=== PATIENT | female | born 1945 | race Caucasian/White ===

== ENCOUNTER 2023-03-15 11:39 | Emergency (ER) | payer MEDICARE, BC, SELFPAY ==
[2023-03-15] VITALS (13 sets, daily range): BP systolic 134–184; BP diastolic 70–90; PULSE 72–97; RESP 14; TEMP 36.9; O2SAT 94–99; BMI 29.2
[2023-03-15 12:28] LABS: Ictotest Urine Negative (Negative)
[2023-03-15] MEDS: ONDANSETRON 4 MG/2 ML INJ IV (12:30)
[2023-03-15 12:36] LABS: Add Manual Diff / Slide Review NO; Basophils Absolute Auto 0 /uL (0-100); Basophils Percent Auto 0.4 % (0-2); Eosinophils Absolute Auto 0 /uL (0-450); Eosinophils Percent Auto 0.4 % (2-4); Hematocrit 39.7 % (36-46); Hemoglobin 13.3 g/dL (12.0-16.0); Lymphocytes Absolute Auto 1700 /uL (1100-4500); Mean Corpuscular HGB Conc 33.5 % (30-36); Mean Corpuscular Hemoglobin 29.7 PG (26-34); Mean Corpuscular Volume 88.7 fL (80-100); Monocytes Absolute Auto 1100 /uL (0-900); Monocytes Percent Auto 9.4 % (3-14); Neutrophils Absolute Auto 8600 /uL (1500-7000); Neutrophils Percent Auto 74.8 % (50-75); Platelet Count 330 X10^3/uL (150-400); Red Blood Cell Count 4.48 X10^6/uL (4.0-5.2); Red Cell Distribution Width 13.4 % (11.6-14.8); White Blood Cell Count 11.5 X10^3/uL (4.5-11.0)
[2023-03-15 12:39] LABS: Amorphous Sediment Urine 2+; Bacteria Urine Moderate (10-30); Culture Indicated Urine Specimen Cultured; RBC Urine 1-5/HPF (0-5/HPF); Squamous Epithelial Cell Urine 10-30 /HPF (0-5/HPF); WBC Urine 30-100/HPF (0-5/HPF)
[2023-03-15 12:46] LABS: Alanine Aminotransferase 20 IU/L (<35); Albumin 4.3 g/dL (3.5-5.0); Albumin Globulin Ratio 1.1 (1.0-2.8); Alkaline Phosphatase 95 U/L (38-126); Aspartate Aminotransferase 22 IU/L (14-36); BUN Creatinine Ratio 21.6 (6-22); Blood Urea Nitrogen 16 mg/dL (7-17); Calcium 9.1 mg/dL (8.4-10.2); Carbon Dioxide 26 mmol/L (22-32); Chloride 100 mmol/L (98-107); Estimated Glomerular Filt Rate > 60 mL/min (>60); Globulin 3.8 g/dL (1.7-4.1); Glucose 112 mg/dL (80-110); HEMOLYSIS < 15 (0-50); Lipase 33 U/L (23-300); Potassium 4.1 mmol/L (3.4-5.1); Sodium 138 mmol/L (137-145); Total Protein 8.1 g/dL (6.3-8.2)
--- NOTE | 2023-03-15 13:26 | ED.ABDPAIN ---
HPI - Abdominal Pain General Chief Complaint: Abdominal Pain Stated Complaint: abd pain T-7 Time Seen by Provider: 03/15/23 13:25 Source: patient Mode of arrival: Ambulatory History of Present Illness HPI narrative: 77-year-old female nonsmoker presents with intense lower abdominal pain after having a few days of nausea, vomiting and diarrhea. She states that for perhaps even a few weeks leading up to this she would had some nausea and just felt slightly unwell and then over the course of the week has had episodes of nausea, vomiting and diarrhea, the last vomiting a few days ago in the last episode of diarrhea yesterday. She felt nauseated this morning but did not actually vomit though she does admit to some dry heaves. She states that this morning her pain was quite intense and is currently about a 4/10. She states that during the week her pain has never completely gone away but does seem to come and go a little bit, at times perhaps a loose stool lessened her symptoms. She denies recent antibiotics, travel, exposure to bad food or ill persons. She states that she had tried starting metformin in January and seemed immediately to have an intolerance to it, largely stating that GI symptoms seemed to develop, initially she was on 500 mg b.i.d. and then she slowly has tapered herself down to 1 pill daily and then 1 pill every other day and now she is completely often has been for the past few weeks. Otherwise she denies any new medications or dietary change. Related Data Previous Rx's Medication Instructions Recorded amoxicillin 875 mg-potassium 1 tab PO Q12H #20 tabs 03/15/23 clavulanate 125 mg tablet ondansetron 4 mg disintegrating 4 mg PO TID-QID PRN nausea and 03/15/23 tablet vomiting #10 tabs pantoprazole 40 mg tablet,delayed 40 mg PO DAILY #30 tabs 03/15/23 release (Protonix) Allergies Allergy/AdvReac Type Severity Reaction Status Date / Time No Known Drug Allergies Allergy Verified 03/15/23 11:50 Review of Systems Review of Systems Narrative: GENERAL: Denies chills, fatigue, malaise, fever, sweats. HEENT: Denies sinus pain, ear pain, sore throat, difficulty swallowing, dizziness. RESPIRATORY: Denies dyspnea, cough, wheezing, hemoptysis, sputum. CARDIOVASCULAR: Denies chest pain, palpitations, orthopnea, edema, GASTROINTESTINAL: See HPI : Denies dysuria, frequency, incontinence, hematuria, urinary retention. MUSCULOSKELETAL: denies weakness, joint pain, or bony pain SKIN: Denies rash, skin lesions, or other NEUROLOGIC: Denies weakness, headache, numbness, change in speech, confusion, seizures, incoordination. PSYCHIATRIC: No concerning psychosocial issues. 12 point review of systems is negative except for those stated above Patient History Social History Smoking Status: Unknown if ever smoked Smoking Status: Unknown if ever smoked alcohol intake frequency: holidays/special occasions only Substance Use Type: does not use Exam Narrative Exam Narrative: GENERAL: [77] year old patient appears stated age. Well-developed patient, in mild distress. HEAD: Atraumatic. Normocephalic. EYES: Pupils equal round and reactive. Extraocular motions intact. No scleral icterus. No injection or drainage. ENT: Nose without bleeding, purulent drainage. Throat without erythema, tonsillar hypertrophy or exudate. Airway patent. NECK: Trachea midline. Non tender CARDIOVASCULAR: Regular rate and rhythm without murmurs, gallops, or rubs. RESPIRATORY: Clear to auscultation. Breath sounds equal bilaterally. No wheezes, rales, or rhonchi. GASTROINTESTINAL: Abdomen soft, non-tender, nondistended. EXTREMITIES: No edema or joint tenderness. BACK: Nontender without deformity or crepitance. No flank tenderness. NEURO: AOx3. SKIN: No rash or erythema of visible areas Initial Vital Signs Initial Vital Signs: Vital Signs Temperature 98.5 F 03/15/23 11:49 Pulse Rate 87 03/15/23 11:49 Respiratory Rate 14 03/15/23 11:49 Blood Pressure 149/90 H 03/15/23 11:49 Pulse Oximetry 98 03/15/23 11:49 Oxygen Delivery Method Room Air 03/15/23 11:49 Course Orders Ordered: Discontinued Medications Ondansetron HCl (Ondansetron 4 Mg/2 Ml Inj) 4 mg IV NOW PRN PRN Reason: Nausea And Vomiting Last Admin: 03/15/23 12:30 Dose: 4 mg Documented By: [facility] Vital Signs Vital signs: Vital Signs - 8 hr 03/15/23 11:49 Temperature 98.5 F Pulse Rate 87 Respiratory Rate 14 Blood Pressure 149/90 H Pulse Oximetry 98 Oxygen Delivery Method Room Air MDM - Abdominal Pain Lab Data 03/15/23 11:54 03/15/23 11:54 Labs: Lab Results 03/15/23 03/15/23 03/15/23 Range/Units 11:54 11:54 12:00 WBC 11.5 H (4.5-11.0) X10^3/uL RBC 4.48 (4.0-5.2) X10^6/uL Hgb 13.3 (12.0-16.0) g/dL Hct 39.7 (36-46) % MCV 88.7 (80-100) fL MCH 29.7 (26-34) PG MCHC 33.5 (30-36) % RDW 13.4 (11.6-14.8) % Plt Count 330 (150-400) X10^3/uL Neut % (Auto) 74.8 (50-75) % Lymph % (Auto) 15.0 L (25-40) % [place] % (Auto) 9.4 (3-14) % Eos % (Auto) 0.4 L (2-4) % Baso % (Auto) 0.4 (0-2) % Neut # (Auto) 8600 H (2416-8567) /uL Lymph # (Auto) 1700 (0135-1639) /uL [place] # (Auto) 1100 H (0-900) /uL Eos # (Auto) 0 (0-450) /uL Baso # (Auto) 0 (0-100) /uL Sodium 138 (137-145) mmol/L Potassium 4.1 (3.4-5.1) mmol/L Chloride 100 (98-107) mmol/L Carbon Dioxide 26 (22-32) mmol/L BUN 16 (7-17) mg/dL Creatinine 0.74 (0.52-1.04) mg/dL Estimated GFR > 60 (>60) mL/min BUN/Creatinine Ratio 21.6 (6-22) Glucose 112 H (80-110) mg/dL Calcium 9.1 (8.4-10.2) mg/dL Total Bilirubin 1.0 (0.2-1.3) mg/dL AST 22 (14-36) IU/L ALT 20 (<35) IU/L Alkaline Phosphatase 95 (38-126) U/L Total Protein 8.1 (6.3-8.2) g/dL Albumin 4.3 (3.5-5.0) g/dL Globulin 3.8 (1.7-4.1) g/dL Albumin/Globulin Ratio 1.1 (1.0-2.8) Lipase 33 (23-300) U/L Ur Bilirubin Confirm (Negative) Urine RBC 1-5/hpf (0-5/HPF) Urine WBC 30-100/hpf H (0-5/HPF) Ur Squamous Epith Cells 10-30 /hpf H (0-5/HPF) Amorphous Sediment 2+ Urine Bacteria Moderate (10-30) H (None) Ur Culture Indicated? Specimen cultured 03/15/23 Range/Units 12:00 WBC (4.5-11.0) X10^3/uL RBC (4.0-5.2) X10^6/uL Hgb (12.0-16.0) g/dL Hct (36-46) % MCV (80-100) fL MCH (26-34) PG MCHC (30-36) % RDW (11.6-14.8) % Plt Count (150-400) X10^3/uL Neut % (Auto) (50-75) % Lymph % (Auto) (25-40) % [place] % (Auto) (3-14) % Eos % (Auto) (2-4) % Baso % (Auto) (0-2) % Neut # (Auto) (6615-5600) /uL Lymph # (Auto) (4610-2677) /uL [place] # (Auto) (0-900) /uL Eos # (Auto) (0-450) /uL Baso # (Auto) (0-100) /uL Sodium (137-145) mmol/L Potassium (3.4-5.1) mmol/L Chloride (98-107) mmol/L Carbon Dioxide (22-32) mmol/L BUN (7-17) mg/dL Creatinine (0.52-1.04) mg/dL Estimated GFR (>60) mL/min BUN/Creatinine Ratio (6-22) Glucose (80-110) mg/dL Calcium (8.4-10.2) mg/dL Total Bilirubin (0.2-1.3) mg/dL AST (14-36) IU/L ALT (<35) IU/L Alkaline Phosphatase (38-126) U/L Total Protein (6.3-8.2) g/dL Albumin (3.5-5.0) g/dL Globulin (1.7-4.1) g/dL Albumin/Globulin Ratio (1.0-2.8) Lipase (23-300) U/L Ur Bilirubin Confirm Negative (Negative) Urine RBC (0-5/HPF) Urine WBC (0-5/HPF) Ur Squamous Epith Cells (0-5/HPF) Amorphous Sediment Urine Bacteria (None) Ur Culture Indicated? Point of care testing: Urine Dip Bedside Urine Glucose Negative Bedside Urine Bilirubin + 1 Bedside Urine Ketone +++ 80 Urine Specific [place] 1.030 Bedside Urine Occult Blood +/- Bedside Urine pH 5.5 Bedside Urine Protein + 30 Bedside Urine Urobilinogen - Negative Bedside Urine Nitrite - Negative Bedside Urine Leukocytes ++ 125 Esterase MDM Narrative Medical decision making narrative: CC: 77-year-old female with a few days of nausea, vomiting and diarrhea and now lower abdominal pain Complicating co-morbidities: Age Data collected from: Patient Medical records reviewed: Prior notes reviewed in our EMR Differential considered, but not limited to: Infectious diarrhea versus diverticulitis versus bowel obstruction versus appendicitis versus UTI versus other Exam documented above, pertinent findings include: Heart rate regular, lungs clear, abdomen soft but tender over the suprapubic region, bowel sounds present Lab Test results independently reviewed as above. Pertinent findings: Slight elevation in white blood cells, no left shift, no signs of anemia Independently reviewed EKG as above Imaging studies independently reviewed: Acute sigmoid diverticulitis without definite complicated features such as perforation or abscess Treatments:zofran Re-evaluations: No signs of sepsis, vital signs stable, pain well controlled, tolerating orals Discussion: Patient with nausea, vomiting and diarrhea along with crampy abdominal pain, shows no signs of sepsis. Multiple diagnoses as noted above have been considered. Pain is well controlled, she is tolerating orals, labs are reassuring and imaging demonstrates diverticulitis without high-risk features. She is appropriate for discharge with antibiotics, appropriate return precautions and questions answered to her apparent satisfaction Disposition: see below, along with detailed discharge instructions that have been reviewed with patient as well as indications for ED re-evaluation and additional outpatient follow up Discharge Plan Departure Patient Disposition: Home Clinical Impression: Diverticulitis, Acute UTI Instructions: DI for Diverticulitis, DI for Urinary Tract Infection (UTI) Activity Restrictions/Additional Instructions: *You have been diagnosed with [abdominal pain due to diverticulitis and urinary tract infection * *What to do: *Please continue to take your regular medications as directed. [x ] New medication prescriptions sent to your pharmacy: [ [facility]] *Please follow up with your primary care provider in 2-3 days, call for an appointment. Let them know you were seen in the Emergency Department and that we ask that you be seen in follow up. We will electronically transmit a record of today's note if your PCP is in our system *Please consider a clear liquid diet for the next 24-48 hours and then slowly advance to regular as tolerated. Also, try to avoid alcohol, nicotine, caffeine, spicy, acidic or fatty foods as this may worsen your symptoms *If you do not have a primary care provider please contact the [facility] Resource line at [phone]. They will ask some questions about your medical history and help get you set up with a doctor in the community. *Return to Emergency Department if you should have any new, worsening or concerning symptoms, such as [fever greater than 101 F, shaking chills, worsening pain, persistent vomiting or other bothersome symptoms] Prescriptions: New pantoprazole [Protonix] 40 mg tablet,delayed release (DR/EC) 40 mg PO DAILY Qty: 30 0RF ondansetron 4 mg tablet,disintegrating 4 mg PO TID-QID PRN (Reason: nausea and vomiting) Qty: 10 0RF amoxicillin-pot clavulanate 875-125 mg tablet 1 tab PO Q12H Qty: 20 0RF Referrals: Miscellaneous,Doctor, [Non-Staff] - Stand Alone Forms: Patient Portal/API
--- NOTE | 2023-03-15 14:19 | PC.NURSE ---
Patient has had diarrhea and feelings of constipation, occasionally having some formed lazaro. She has had the feeling of gas and bloating in her abdomen. Pt states not eating much recently due to nausea.
--- NOTE | 2023-03-15 14:29 | DI.CT.S_ITS ---
PROCEDURE: CT ABDOMEN PELVIS W CON INDICATIONS: severe abdominal pain, vomiting TECHNIQUE: After the administration of intravenous contrast, axial sections acquired from the lung bases to the pubic symphysis. Coronal and sagittal reformats were performed. For radiation dose reduction, the following was used: automated exposure control, adjustment of mA and/or kV according to patient size. COMPARISON: None. FINDINGS: Image quality: Excellent. Lung bases: Unremarkable. Heart: No significant findings. ABDOMEN: Liver: Circumscribed hypoattenuating 1.9 cm lesion in the right hepatic lobe is most likely a hemangioma or cyst. Gallbladder: Unremarkable. Biliary ducts: Unremarkable. Pancreas: Unremarkable. Spleen: Unremarkable. Adrenal Glands: Unremarkable. Kidneys and Ureters: Unremarkable. Stomach and Bowel: Multiple diverticula are seen in the colon. There is marked bowel wall thickening and inflammatory fat stranding surrounding a diverticulum at the sigmoid colon. No focal fluid collection or pneumoperitoneum. No signs of bowel obstruction. Peritoneum: No abnormal intraperitoneal fluid. No free air. Ventral Wall: No hernias. Abdominal Nodes: No retroperitoneal or mesenteric adenopathy by size criteria. Vessels: Aorta and inferior vena cava are normal in size. PELVIS: Pelvic Organs: Unremarkable. Bladder: Unremarkable. Pelvic Nodes: No enlarged lymph nodes. Miscellaneous: No hernias are seen. Bones: Degenerative changes are seen in the spine at the L2-3 level. IMPRESSION: 1. Acute sigmoid diverticulosis, without definite complicated features. 2. Indeterminate 1.9 cm liver lesion is most likely a cyst or hemangioma. Recommend follow-up outpatient right upper quadrant ultrasound. Approved by: Mik Lew M.D. on 03/15/2023 at 15:04
--- NOTE | 2023-03-15 16:46 | PC.NURSE ---
Patient had questions regarding her diagnosis today. I informed her about a clear liquid diet and answered more of her questions.
== END 2023-03-15 16:51 | disposition home or self-care (01) ==
PROVIDERS: Emergency Provider Emergency Medicine; PCP Internal Medicine
DX: K57.92 Diverticulitis of intestine, part unspecified, without perforation or abscess without bleeding (principal); N39.0 Urinary tract infection, site not specified
CPT/HCPCS: 36415; 74177; 80053; 81003; 81015; 83690; 85025; 87086; 93005; 99284; J2405; Q9967